=== PATIENT | female | born 1950 | race Caucasian/White ===

== ENCOUNTER 2017-03-22 07:53 | Inpatient (IN) ==
[2017-03-22 09:36] LABS: Basophils % 0.3 % (0.0-0.8); Eosinophils # 0.2 10*3/uL (0.0-0.87); Eosinophils % 2.3 % (0.00-10.9); Immature Granulocytes % 0.5 %; Immature Granulocytes Absolute 0.04 #; Lymphocytes # 1.1 10*3/uL (1.4-4.0); Lymphocytes % 15.1 % (21.3-54.2); Mean Corpuscular HGB Conc 30.7 GM/DL (32-36); Mean Corpuscular Hemoglobin 27 PG (27-34); Mean Platelet Volume 12.5 FL (9.6-12.0); Monocytes # 0.6 10*3/uL (0.11-0.8); Monocytes % 7.7 % (1.7-12.7); Neutrophils # 5.6 10*3/uL (1.4-7.4); Neutrophils % 74.1 % (38.7-73.9); Platelet Count 345 T/CUMM (130-400); Red Blood Count 1.72 MC/CUMM (3.8-5.5); Red Cell Distribution Width 15.4 % (9.3-17.3); White Blood Count 7.5 T/CUMM (4-12)
[2017-03-22 09:39] LABS: Hemoglobin 4.7 GM/DL (12.0-16.0)
[2017-03-22 09:40] LABS: Hematocrit 15.3 VOL% (35.7-47.0)
[2017-03-22] MEDS ORDERED: SODIUM CHLORIDE 0.9% 1,000 ML IV PRN (09:40)
[2017-03-22 09:51] LABS: Alanine Aminotransferase 58 U/L (13-56); Albumin 3.5 G/DL (3.4-5.0); Alkaline Phosphatase 250 U/L (45-117); Aspartate Amino Transferase 43 U/L (0-37); Bilirubin,Total < 0.39 MG/DL (0.2-1.0); Blood Urea Nitrogen 33 MG/DL (7-18); Calcium 8.5 MG/DL (8.5-10.1); Glucose 101 MG/DL (74-106); Magnesium 2.8 MG/DL (1.8-2.4); Osmolality,Calculated 281.7 MOS/KG (273-304); Potassium 4.9 MMOL/L (3.5-5.1); Sodium 138 MMOL/L (136-145); Total Protein 6.8 G/DL (6.4-8.3)
[2017-03-22 12:47] LABS: Hematocrit 27.9 VOL% (35.7-47.0); Hemoglobin 8.6 GM/DL (12.0-16.0)
[2017-03-22] MEDS ORDERED: FUROSEMIDE 40 MG/4 ML VIAL IV ONE (14:34)
[2017-03-22] MEDS ORDERED: FUROSEMIDE 40 MG/4 ML VIAL ONE (14:35)
[2017-03-22] MEDS: PANTOPRAZOLE 40 MG VIAL IV SCH (14:48)
[2017-03-22 15:34] LABS: Hematocrit 30.1 VOL% (35.7-47.0); Hemoglobin 9.2 GM/DL (12.0-16.0)
[2017-03-22 19:27] LABS: Hematocrit 29.1 VOL% (35.7-47.0)
[2017-03-22] MEDS ORDERED: traMADol 50 MG TABLET PO PRN (19:48)
[2017-03-22] MEDS ORDERED: ATORVASTATIN 10 MG TABLET PO SCH (21:00)
[2017-03-23 06:00] LABS: Hematocrit 27.1 VOL% (35.7-47.0); Hemoglobin 8.5 GM/DL (12.0-16.0)
[2017-03-23] MEDS ORDERED: ESTRADIOL 2 MG TABLET PO SCH (09:00)
[2017-03-23] MEDS ORDERED: IRBESARTAN 150 MG TABLET PO SCH (09:00)
[2017-03-23] MEDS ORDERED: TRIAMTERENE/HCTZ 37.5-25 MG TABLET PO SCH (09:00)
[2017-03-23] MEDS: PANTOPRAZOLE 40 MG VIAL IV SCH (11:02)
[2017-03-23 11:53] LABS: Hematocrit 28.8 VOL% (35.7-47.0); Hemoglobin 8.9 GM/DL (12.0-16.0)
[2017-03-23 12:50] VITALS: BP 154/80
== END 2017-03-23 14:00 | disposition home or self-care (01) | DRG 811 ==
LOC: N.ED 07:53 → N.EDINP 10:15 → SUATTDRO 10:15 → N.4E 12:00
PROVIDERS: ADMIT Internal Medicine; ATTEND Hospitalist

== ENCOUNTER 2022-04-19 16:10 | Observation (INO) ==
[2022-04-19] MEDS ORDERED: ASPIRIN 325 MG TABLET PO STA (16:54)
[2022-04-19 17:00] LABS: Basophils # 0.1 10*3/uL (0.0-0.2); Basophils % 0.9 % (0.0-0.8); Eosinophils # 0.2 10*3/uL (0.0-0.87); Hemoglobin 11.7 GM/DL (12.0-16.0); Immature Granulocytes % 0.4 %; Immature Granulocytes Absolute 0.03 #; Lymphocytes # 1.6 10*3/uL (1.4-4.0); Mean Corpuscular Volume 97.3 FL (87-102); Mean Platelet Volume 12.3 FL (9.6-12.0); Monocytes # 0.6 10*3/uL (0.11-0.8); Monocytes % 8.2 % (1.7-12.7); Neutrophils % 67.5 % (38.7-73.9); Platelet Count 150 T/CUMM (130-400); Red Blood Count 4.01 MC/CUMM (3.8-5.5); White Blood Count 7.5 T/CUMM (4-12)
[2022-04-19 17:20] LABS: Calcium 8.5 MG/DL (8.5-10.1); Osmolality,Calculated 297.4 MOS/KG (273-304); Potassium 3.8 MMOL/L (3.5-5.1)
[2022-04-19] MEDS ORDERED: FUROSEMIDE 40 MG/4 ML VIAL IV STA (18:00)
[2022-04-19] MEDS ORDERED: SIMETHICONE CHEW 125 MG TABLET PO PRN (19:27)
[2022-04-19] MEDS ORDERED: ALBUTEROL 2.5 MG/3 ML NEB RESP TX PRN (19:27)
[2022-04-19] MEDS ORDERED: ONDANSETRON 4 MG/2 ML VIAL IV PRN (19:27)
[2022-04-19] MEDS ORDERED: hydrALAZINE 20 MG/1 ML VIAL IV PRN (19:27)
[2022-04-19] MEDS ORDERED: MORPHINE 2 MG/1 ML SYRINGE IV PRN (19:27)
[2022-04-19] MEDS ORDERED: ACETAMINOPHEN 325 MG TABLET PO PRN (19:27)
[2022-04-19] MEDS ORDERED: FUROSEMIDE 40 MG TABLET PO PRN (19:32)
[2022-04-19] MEDS ORDERED: tiZANidine 4 MG TABLET PO PRN (19:32)
[2022-04-19] MEDS ORDERED: GABAPENTIN 100 MG CAPSULE PO PRN (19:32)
[2022-04-19] MEDS ORDERED: ENOXAPARIN 40 MG/0.4 ML SYRINGE SUBCUT SCH (21:00)
[2022-04-19] MEDS: DOCUSATE SODIUM 100 MG CAPSULE PO SCH (21:08)
[2022-04-19] MEDS: carvediloL 6.25 MG TABLET PO SCH (21:08)
[2022-04-20 05:02] LABS: Basophils # 0.1 10*3/uL (0.0-0.2); Basophils % 1.1 % (0.0-0.8); Eosinophils # 0.2 10*3/uL (0.0-0.87); Eosinophils % 2.5 % (0.00-10.9); Hematocrit 39.1 VOL% (35.7-47.0); Immature Granulocytes % 0.5 %; Immature Granulocytes Absolute 0.04 #; Lymphocytes # 2.3 10*3/uL (1.4-4.0); Lymphocytes % 26.4 % (21.3-54.2); Mean Corpuscular HGB Conc 30.7 GM/DL (32-36); Mean Corpuscular Volume 94.7 FL (87-102); Mean Platelet Volume 13.1 FL (9.6-12.0); Monocytes # 0.7 10*3/uL (0.11-0.8); Monocytes % 8.2 % (1.7-12.7); Neutrophils % 61.3 % (38.7-73.9); Platelet Count 152 T/CUMM (130-400); Red Blood Count 4.13 MC/CUMM (3.8-5.5); Red Cell Distribution Width 13.9 % (9.3-17.3); White Blood Count 8.6 T/CUMM (4-12)
[2022-04-20 05:03] LABS: INR 0.9; PT Patient Result 10.2 SECS (10.1-12.1)
[2022-04-20 05:26] LABS: Calcium 8.5 MG/DL (8.5-10.1); Potassium 4.1 MMOL/L (3.5-5.1); Risk Ratio 2.85; Thyroid Stimulating Hormone 2.75 uIU/ml (0.358-3.74); VLDL Cholesterol 50.4 MG/DL
[2022-04-20] MEDS ORDERED: PANTOPRAZOLE 40 MG TABLET PO SCH (09:00)
[2022-04-20] MEDS ORDERED: amLODIPine 2.5 MG TABLET PO SCH (09:00)
[2022-04-20] MEDS ORDERED: ATORVASTATIN 40 MG TABLET PO SCH (09:00)
[2022-04-20] MEDS ORDERED: ASPIRIN EC 325 MG TABLET PO SCH (09:00)
[2022-04-20] MEDS ORDERED: FUROSEMIDE 40 MG TABLET PO SCH (09:00)
[2022-04-20] MEDS ORDERED: hydroCHLOROthiazide 25 MG TABLET PO SCH (09:00)
[2022-04-20] MEDS ORDERED: buPROPion XL 150 MG TABLET PO SCH (09:00)
[2022-04-20] MEDS: DOCUSATE SODIUM 100 MG CAPSULE PO SCH (11:34)
[2022-04-20] MEDS: carvediloL 6.25 MG TABLET PO SCH (11:35)
[2022-04-20 16:47] VITALS: BP 122/92
[2022-04-21] MEDS ORDERED: ASPIRIN EC 81 MG TABLET PO SCH (09:00)
== END 2022-04-20 16:55 | disposition home or self-care (01) ==
LOC: N.ED 16:10 → N.EDINP 16:10 → SUATTDRO 19:27 → N.TELEN 21:41
PROVIDERS: ADMIT Internal Medicine; ATTEND Internal Medicine

== ENCOUNTER 2022-04-24 22:38 | Inpatient (IN) ==
[2022-04-24 23:05] LABS: Basophils # 0.1 10*3/uL (0.0-0.2); Eosinophils # 0.3 10*3/uL (0.0-0.87); Eosinophils % 2.9 % (0.00-10.9); Hematocrit 36.7 VOL% (35.7-47.0); Hemoglobin 11.3 GM/DL (12.0-16.0); Immature Granulocytes % 0.6 %; Immature Granulocytes Absolute 0.05 #; Lymphocytes # 1.9 10*3/uL (1.4-4.0); Lymphocytes % 22.2 % (21.3-54.2); Mean Corpuscular HGB Conc 30.8 GM/DL (32-36); Mean Corpuscular Volume 95.1 FL (87-102); Mean Platelet Volume 12.6 FL (9.6-12.0); Monocytes # 0.7 10*3/uL (0.11-0.8); Monocytes % 7.7 % (1.7-12.7); Neutrophils % 65.6 % (38.7-73.9); Platelet Count 186 T/CUMM (130-400); Red Blood Count 3.86 MC/CUMM (3.8-5.5); Red Cell Distribution Width 13.8 % (9.3-17.3); White Blood Count 8.7 T/CUMM (4-12)
[2022-04-24 23:23] LABS: Alanine Aminotransferase 36 U/L (13-56); Albumin 3.8 G/DL (3.4-5.0); Alkaline Phosphatase 125 U/L (45-117); Aspartate Amino Transferase 26 U/L (0-37); Bilirubin,Total < 0.39 MG/DL (0.20-1.00); Blood Urea Nitrogen 68 MG/DL (7-18); Calcium 9.2 MG/DL (8.5-10.1); Carbon Dioxide 31 MMOL/L (21-32); Chloride 101 MMOL/L (98-107); Glucose 118 MG/DL (74-106); Sodium 136 MMOL/L (136-145); Total Protein 7.4 G/DL (6.4-8.2)
[2022-04-24] MEDS ORDERED: ASPIRIN 325 MG TABLET PO STA (23:34)
[2022-04-24] MEDS ORDERED: PANTOPRAZOLE 40 MG VIAL IV STA (23:36)
[2022-04-25] MEDS ORDERED: ONDANSETRON 4 MG/2 ML VIAL IV STA (00:22)
[2022-04-25] MEDS ORDERED: MORPHINE 2 MG/1 ML SYRINGE IV STA (00:22)
[2022-04-25] MEDS ORDERED: FUROSEMIDE 100 MG/10 ML VIAL IV STA (00:23)
[2022-04-25] MEDS ORDERED: FUROSEMIDE 40 MG/4 ML VIAL ONE (00:32)
[2022-04-25] MEDS ORDERED: SODIUM CHLORIDE 0.9% 500 ML IV STA (00:42)
[2022-04-25] MEDS ORDERED: CALCIUM GLUCONATE RIDER 1,000 MG/50 ML PREMIX IV ONE (01:45)
[2022-04-25] MEDS ORDERED: ALUM/MAG/SIMETH/LIDO VISC 1:1 30 ML BOTTLE PO STA (01:58)
[2022-04-25] MEDS ORDERED: ACETAMINOPHEN 325 MG TABLET PO PRN (02:44)
[2022-04-25] MEDS ORDERED: ONDANSETRON 4 MG/2 ML VIAL IV PRN (02:44)
[2022-04-25] MEDS: predniSONE 20 MG TABLET PO SCH (04:30)
[2022-04-25 04:41] LABS: Basophils # 0.1 10*3/uL (0.0-0.2); Basophils % 0.9 % (0.0-0.8); Eosinophils # 0.2 10*3/uL (0.0-0.87); Eosinophils % 2.2 % (0.00-10.9); Hemoglobin 10.8 GM/DL (12.0-16.0); Immature Granulocytes % 0.5 %; Immature Granulocytes Absolute 0.04 #; Lymphocytes # 1.5 10*3/uL (1.4-4.0); Lymphocytes % 19.1 % (21.3-54.2); Mean Corpuscular Volume 96.8 FL (87-102); Mean Platelet Volume 12.3 FL (9.6-12.0); Monocytes # 0.6 10*3/uL (0.11-0.8); Monocytes % 7.3 % (1.7-12.7); Platelet Count 169 T/CUMM (130-400); Red Blood Count 3.72 MC/CUMM (3.8-5.5); Red Cell Distribution Width 13.7 % (9.3-17.3); White Blood Count 7.6 T/CUMM (4-12)
[2022-04-25 05:14] LABS: C-Reactive Protein HS Cardiac 0.43 MG/DL (0-0.3); Calcium 9.1 MG/DL (8.5-10.1); Osmolality,Calculated 299.4 MOS/KG (273-304); Potassium 3.8 MMOL/L (3.5-5.1)
[2022-04-25 05:42] LABS: Sedimentation Rate-Westergren 65 MM/HR (0-30)
[2022-04-25] MEDS: ALBUTEROL/IPRATROPIUM 3 ML NEB RESP TX SCH ×3 (07:30→19:55)
[2022-04-25] MEDS: DOCUSATE SODIUM 100 MG CAPSULE PO SCH ×2 (08:28→22:01)
[2022-04-25] MEDS: HEPARIN 5,000 UNIT/1 ML VIAL SUBCUT SCH ×2 (08:28→22:02)
[2022-04-25] MEDS ORDERED: INFLUENZA VIRUS VACCINE 0.5 ML SYRINGE IM ONE (09:00)
[2022-04-25] MEDS: ALUMINUM/MAGNES/SIMETH MAX STR 30 ML UDCUP PO PRN (11:15)
[2022-04-25] MEDS: amLODIPine 2.5 MG TABLET PO SCH (16:39)
[2022-04-25] MEDS: cefTRIAXone 1,000 MG in SODIUM CHLORIDE 0.9% 100 ML IV SCH (16:39)
[2022-04-25] MEDS: ATORVASTATIN 40 MG TABLET PO SCH (16:40)
[2022-04-25] MEDS: ASPIRIN EC 81 MG TABLET PO SCH (16:40)
[2022-04-25] MEDS: carvediloL 6.25 MG TABLET PO SCH ×2 (16:40→22:01)
[2022-04-25] MEDS: tiZANidine 4 MG TABLET PO PRN (22:02)
[2022-04-25] MEDS: GABAPENTIN 100 MG CAPSULE PO PRN (22:02)
[2022-04-26] MEDS: ALBUTEROL/IPRATROPIUM 3 ML NEB RESP TX SCH ×4 (00:31→21:44)
[2022-04-26] MEDS: ALUMINUM/MAGNES/SIMETH MAX STR 30 ML UDCUP PO PRN (03:33)
[2022-04-26 06:06] LABS: Basophils % 0.5 % (0.0-0.8); Eosinophils # 0.1 10*3/uL (0.0-0.87); Eosinophils % 1.6 % (0.00-10.9); Hematocrit 32.4 VOL% (35.7-47.0); Hemoglobin 10.1 GM/DL (12.0-16.0); Immature Granulocytes % 0.6 %; Immature Granulocytes Absolute 0.04 #; Lymphocytes # 1.4 10*3/uL (1.4-4.0); Lymphocytes % 22.6 % (21.3-54.2); Mean Corpuscular HGB Conc 31.2 GM/DL (32-36); Mean Corpuscular Volume 96.7 FL (87-102); Monocytes # 0.5 10*3/uL (0.11-0.8); Monocytes % 7.6 % (1.7-12.7); Neutrophils % 67.1 % (38.7-73.9); Platelet Count 174 T/CUMM (130-400); Red Blood Count 3.35 MC/CUMM (3.8-5.5); Red Cell Distribution Width 13.7 % (9.3-17.3); White Blood Count 6.2 T/CUMM (4-12)
[2022-04-26] MEDS ORDERED: ALUM/MAG/SIMETH/LIDO VISC 1:1 30 ML BOTTLE PO ONE (06:15)
[2022-04-26 06:23] LABS: Calcium 8.5 MG/DL (8.5-10.1); Osmolality,Calculated 296.4 MOS/KG (273-304); Potassium 3.6 MMOL/L (3.5-5.1)
[2022-04-26] MEDS: ATORVASTATIN 40 MG TABLET PO SCH (09:35)
[2022-04-26] MEDS: predniSONE 20 MG TABLET PO SCH (09:35)
[2022-04-26] MEDS: ASPIRIN EC 81 MG TABLET PO SCH (09:35)
[2022-04-26] MEDS: DOCUSATE SODIUM 100 MG CAPSULE PO SCH ×2 (09:35→20:45)
[2022-04-26] MEDS: FUROSEMIDE 40 MG/4 ML VIAL IV SCH ×2 (09:37→18:03)
[2022-04-26] MEDS: HEPARIN 5,000 UNIT/1 ML VIAL SUBCUT SCH ×2 (09:45→20:47)
[2022-04-26] MEDS: carvediloL 6.25 MG TABLET PO SCH ×2 (12:22→20:45)
[2022-04-26] MEDS: AZITHROMYCIN INJ 500 MG in SODIUM CHLORIDE 0.9% 250 ML IV SCH ×2 (12:22→20:54)
[2022-04-26] MEDS: amLODIPine 2.5 MG TABLET PO SCH (12:22)
[2022-04-26] MEDS: PANTOPRAZOLE 40 MG TABLET PO SCH (12:22)
[2022-04-26] MEDS: cefTRIAXone 1,000 MG in SODIUM CHLORIDE 0.9% 100 ML IV SCH (18:31)
[2022-04-26] MEDS: tiZANidine 4 MG TABLET PO PRN (23:15)
[2022-04-26] MEDS: GABAPENTIN 100 MG CAPSULE PO PRN (23:15)
[2022-04-27] MEDS: ALBUTEROL/IPRATROPIUM 3 ML NEB RESP TX SCH ×4 (01:28→20:24)
[2022-04-27 05:50] LABS: Basophils # 0.1 10*3/uL (0.0-0.2); Basophils % 0.7 % (0.0-0.8); Eosinophils # 0.1 10*3/uL (0.0-0.87); Eosinophils % 0.9 % (0.00-10.9); Hematocrit 35.6 VOL% (35.7-47.0); Hemoglobin 10.9 GM/DL (12.0-16.0); Immature Granulocytes % 0.5 %; Immature Granulocytes Absolute 0.04 #; Lymphocytes % 26.4 % (21.3-54.2); Mean Corpuscular HGB Conc 30.6 GM/DL (32-36); Mean Corpuscular Volume 97.3 FL (87-102); Mean Platelet Volume 12.8 FL (9.6-12.0); Monocytes # 0.4 10*3/uL (0.11-0.8); Monocytes % 5.8 % (1.7-12.7); Neutrophils % 65.7 % (38.7-73.9); Platelet Count 204 T/CUMM (130-400); Red Blood Count 3.66 MC/CUMM (3.8-5.5); Red Cell Distribution Width 13.8 % (9.3-17.3); White Blood Count 7.6 T/CUMM (4-12)
[2022-04-27 06:12] LABS: Alanine Aminotransferase 32 U/L (13-56); Albumin 3.5 G/DL (3.4-5.0); Alkaline Phosphatase 111 U/L (45-117); Aspartate Amino Transferase 23 U/L (0-37); Bilirubin,Total < 0.39 MG/DL (0.20-1.00); Blood Urea Nitrogen 76 MG/DL (7-18); Calcium 8.5 MG/DL (8.5-10.1); Carbon Dioxide 29 MMOL/L (21-32); Chloride 102 MMOL/L (98-107); Glucose 116 MG/DL (74-106); Osmolality,Calculated 296.8 MOS/KG (273-304); Potassium 3.6 MMOL/L (3.5-5.1); Sodium 137 MMOL/L (136-145); Total Protein 6.9 G/DL (6.4-8.2)
[2022-04-27] MEDS ORDERED: NITROGLYCERIN SL 0.4 MG TABLET SL ONE ×2 (08:07→08:10)
[2022-04-27] MEDS: ASPIRIN EC 81 MG TABLET PO SCH (08:12)
[2022-04-27] MEDS: predniSONE 20 MG TABLET PO SCH (08:12)
[2022-04-27] MEDS: ATORVASTATIN 40 MG TABLET PO SCH (08:12)
[2022-04-27] MEDS: DOCUSATE SODIUM 100 MG CAPSULE PO SCH ×2 (08:12→21:17)
[2022-04-27] MEDS: PANTOPRAZOLE 40 MG TABLET PO SCH (08:13)
[2022-04-27] MEDS: HEPARIN 5,000 UNIT/1 ML VIAL SUBCUT SCH ×2 (08:13→21:18)
[2022-04-27] MEDS: carvediloL 6.25 MG TABLET PO SCH ×2 (08:17→21:17)
[2022-04-27] MEDS: ALUMINUM/MAGNES/SIMETH MAX STR 30 ML UDCUP PO PRN ×2 (08:17→18:22)
[2022-04-27] MEDS: GABAPENTIN 100 MG CAPSULE PO PRN ×2 (08:34→21:32)
[2022-04-27] MEDS ORDERED: MORPHINE 2 MG/1 ML SYRINGE IV ONE (09:55)
[2022-04-27] MEDS ORDERED: FUROSEMIDE 40 MG/4 ML VIAL IV ONE (10:14)
[2022-04-27] MEDS ORDERED: HYOSCYAMINE 0.125 MG TABLET PO PRN (10:42)
[2022-04-27] MEDS: methylPREDNISolone SOD SUC 125 MG/2 ML VIAL IV SCH ×2 (13:30→21:18)
[2022-04-27] MEDS: cefTRIAXone 1,000 MG in SODIUM CHLORIDE 0.9% 100 ML IV SCH (17:19)
[2022-04-27] MEDS: AZITHROMYCIN INJ 500 MG in SODIUM CHLORIDE 0.9% 250 ML IV SCH (17:56)
[2022-04-27] MEDS: ASCORBIC ACID 500 MG TABLET PO SCH (21:17)
[2022-04-27] MEDS: PANTOPRAZOLE 40 MG VIAL IV SCH (21:18)
[2022-04-27] MEDS: tiZANidine 4 MG TABLET PO PRN (21:32)
[2022-04-28] MEDS: ALBUTEROL/IPRATROPIUM 3 ML NEB RESP TX SCH ×3 (00:56→13:00)
[2022-04-28] MEDS: methylPREDNISolone SOD SUC 125 MG/2 ML VIAL IV SCH (04:21)
[2022-04-28 05:18] LABS: Basophils % 0.1 % (0.0-0.8); Hematocrit 31.7 VOL% (35.7-47.0); Hemoglobin 9.7 GM/DL (12.0-16.0); Immature Granulocytes % 0.8 %; Immature Granulocytes Absolute 0.06 #; Lymphocytes # 0.6 10*3/uL (1.4-4.0); Lymphocytes % 8.4 % (21.3-54.2); Mean Corpuscular HGB Conc 30.6 GM/DL (32-36); Mean Corpuscular Volume 95.5 FL (87-102); Mean Platelet Volume 12.9 FL (9.6-12.0); Monocytes # 0.1 10*3/uL (0.11-0.8); Monocytes % 1.1 % (1.7-12.7); Neutrophils % 89.6 % (38.7-73.9); Platelet Count 183 T/CUMM (130-400); Red Blood Count 3.32 MC/CUMM (3.8-5.5); Red Cell Distribution Width 13.5 % (9.3-17.3); White Blood Count 7.5 T/CUMM (4-12)
[2022-04-28 05:51] LABS: Osmolality,Calculated 307.5 MOS/KG (273-304)
[2022-04-28] MEDS ORDERED: buPROPion XL 150 MG TABLET PO SCH (09:00)
[2022-04-28] MEDS ORDERED: FUROSEMIDE 40 MG/4 ML VIAL IV SCH (09:00)
[2022-04-28] MEDS: ASCORBIC ACID 500 MG TABLET PO SCH (10:30)
[2022-04-28] MEDS ORDERED: SODIUM CHLORIDE 0.9% 1,000 ML IV SCH (10:30)
[2022-04-28] MEDS: DOCUSATE SODIUM 100 MG CAPSULE PO SCH (10:31)
[2022-04-28] MEDS: ASPIRIN EC 81 MG TABLET PO SCH (10:31)
[2022-04-28] MEDS: ATORVASTATIN 40 MG TABLET PO SCH (10:31)
[2022-04-28] MEDS: GABAPENTIN 100 MG CAPSULE PO PRN (10:32)
[2022-04-28] MEDS: HEPARIN 5,000 UNIT/1 ML VIAL SUBCUT SCH (10:33)
[2022-04-28] MEDS: PANTOPRAZOLE 40 MG VIAL IV SCH (10:35)
[2022-04-28] MEDS: carvediloL 6.25 MG TABLET PO SCH (10:49)
[2022-04-28] MEDS ORDERED: predniSONE 20 MG TABLET PO ONE (13:02)
[2022-04-28] MEDS ORDERED: AZITHROMYCIN 250 MG TABLET PO ONE (13:02)
[2022-04-28] MEDS ORDERED: cefTRIAXone 1,000 MG VIAL IM ONE (13:03)
[2022-04-28] MEDS ORDERED: LIDOCAINE 1% 20 ML VIAL IM ONE ×2 (16:30)
[2022-04-28 16:37] VITALS: BP 145/83
== END 2022-04-28 17:15 | disposition home or self-care (01) | DRG 194 ==
LOC: N.ED 22:38 → N.TELEN 22:38 → SUATTDRO 04-25 02:38 → N.TELEN 04-25 04:56 → SUATTDRO 04-27 14:59
PROVIDERS: ADMIT Internal Medicine; ATTEND Internal Medicine

== ENCOUNTER 2022-05-01 16:01 | Observation (INO) ==
[2022-05-01] MEDS ORDERED: MORPHINE 2 MG/1 ML SYRINGE IV STA (17:13)
[2022-05-01 17:20] LABS: Basophils # 0.1 10*3/uL (0.0-0.2); Basophils % 0.6 % (0.0-0.8); Eosinophils # 0.1 10*3/uL (0.0-0.87); Hemoglobin 11.5 GM/DL (12.0-16.0); Immature Granulocytes % 2.6 %; Immature Granulocytes Absolute 0.21 #; Lymphocytes # 1.4 10*3/uL (1.4-4.0); Lymphocytes % 17.2 % (21.3-54.2); Mean Corpuscular HGB Conc 31.1 GM/DL (32-36); Mean Corpuscular Volume 94.9 FL (87-102); Mean Platelet Volume 12.7 FL (9.6-12.0); Monocytes # 0.4 10*3/uL (0.11-0.8); Monocytes % 4.6 % (1.7-12.7); Platelet Count 275 T/CUMM (130-400); Red Cell Distribution Width 13.9 % (9.3-17.3)
[2022-05-01] MEDS ORDERED: ONDANSETRON 4 MG/2 ML VIAL ONE (17:25)
[2022-05-01 17:45] LABS: Calcium 8.3 MG/DL (8.5-10.1); Potassium 4.4 MMOL/L (3.5-5.1)
[2022-05-01] MEDS ORDERED: MORPHINE 2 MG/1 ML SYRINGE IV PRN (18:44)
[2022-05-01] MEDS ORDERED: ACETAMINOPHEN 325 MG TABLET PO PRN (18:44)
[2022-05-01] MEDS ORDERED: ONDANSETRON 4 MG/2 ML VIAL IV PRN (18:44)
[2022-05-01] MEDS ORDERED: ASPIRIN CHEW 81 MG TABLET PO STA (19:07)
[2022-05-01] MEDS: tiZANidine 4 MG TABLET PO PRN (21:39)
[2022-05-02 06:13] LABS: Basophils % 0.5 % (0.0-0.8); Eosinophils # 0.2 10*3/uL (0.0-0.87); Eosinophils % 2.6 % (0.00-10.9); Hematocrit 33.3 VOL% (35.7-47.0); Hemoglobin 10.4 GM/DL (12.0-16.0); Immature Granulocytes % 2.5 %; Immature Granulocytes Absolute 0.21 #; Lymphocytes # 2.1 10*3/uL (1.4-4.0); Lymphocytes % 24.3 % (21.3-54.2); Mean Corpuscular HGB Conc 31.2 GM/DL (32-36); Mean Corpuscular Volume 94.6 FL (87-102); Mean Platelet Volume 12.5 FL (9.6-12.0); Monocytes # 0.6 10*3/uL (0.11-0.8); Monocytes % 7.3 % (1.7-12.7); Neutrophils % 62.8 % (38.7-73.9); Platelet Count 252 T/CUMM (130-400); Red Blood Count 3.52 MC/CUMM (3.8-5.5); Red Cell Distribution Width 14.1 % (9.3-17.3); White Blood Count 8.5 T/CUMM (4-12)
[2022-05-02 06:43] LABS: Alanine Aminotransferase 212 U/L (13-56); Albumin 3.2 G/DL (3.4-5.0); Alkaline Phosphatase 106 U/L (45-117); Aspartate Amino Transferase 94 U/L (0-37); Bilirubin,Total < 0.39 MG/DL (0.20-1.00); Blood Urea Nitrogen 68 MG/DL (7-18); Calcium 7.9 MG/DL (8.5-10.1); Carbon Dioxide 28 MMOL/L (21-32); Chloride 101 MMOL/L (98-107); Cholesterol 158 MG/DL (50-200); Glucose 99 MG/DL (74-106); HDL Cholesterol 73 MG/DL (40-60); Osmolality,Calculated 298.4 MOS/KG (273-304); Potassium 3.9 MMOL/L (3.5-5.1); Risk Ratio 2.16; Sodium 140 MMOL/L (136-145); Total Protein 5.8 G/DL (6.4-8.2); Triglycerides 290 MG/DL (2-150)
[2022-05-02] MEDS ORDERED: GABAPENTIN 100 MG CAPSULE PO PRN (07:58)
[2022-05-02] MEDS ORDERED: NITROGLYCERIN 2% OINT 1 INCH/GM PACK TOP ONE (07:58)
[2022-05-02] MEDS ORDERED: FUROSEMIDE 40 MG TABLET PO PRN (07:58)
[2022-05-02] MEDS ORDERED: ENOXAPARIN 80 MG/0.8 ML SYRINGE SUBCUT ONE (07:58)
[2022-05-02] MEDS ORDERED: FUROSEMIDE 40 MG/4 ML VIAL IV ONE (08:13)
[2022-05-02] MEDS: amLODIPine 2.5 MG TABLET PO SCH (08:32)
[2022-05-02] MEDS: ATORVASTATIN 40 MG TABLET PO SCH (08:32)
[2022-05-02] MEDS: ASCORBIC ACID 500 MG TABLET PO SCH ×2 (08:32→21:18)
[2022-05-02] MEDS: PANTOPRAZOLE 40 MG TABLET PO SCH ×2 (08:33→09:42)
[2022-05-02] MEDS: buPROPion XL 150 MG TABLET PO SCH (08:33)
[2022-05-02] MEDS: carvediloL 6.25 MG TABLET PO SCH ×2 (08:33→21:19)
[2022-05-02] MEDS: ASPIRIN EC 81 MG TABLET PO SCH (08:33)
[2022-05-02] MEDS: ISOSORBIDE MONONITRATE 30 MG TABLET PO SCH (13:39)
[2022-05-02] MEDS: BUDESONIDE/FORMOTEROL 80-4.5 INHALER 6.9 GM INH SCH (21:19)
[2022-05-02] MEDS: tiZANidine 4 MG TABLET PO PRN (22:49)
[2022-05-03 08:19] VITALS: BP 117/72
[2022-05-03] MEDS: BUDESONIDE/FORMOTEROL 80-4.5 INHALER 6.9 GM INH SCH (09:16)
[2022-05-03] MEDS: ISOSORBIDE MONONITRATE 30 MG TABLET PO SCH (09:17)
[2022-05-03] MEDS: ATORVASTATIN 40 MG TABLET PO SCH (09:17)
[2022-05-03] MEDS: ASCORBIC ACID 500 MG TABLET PO SCH (09:17)
[2022-05-03] MEDS: amLODIPine 2.5 MG TABLET PO SCH (09:17)
[2022-05-03] MEDS: carvediloL 6.25 MG TABLET PO SCH (09:17)
[2022-05-03] MEDS: PANTOPRAZOLE 40 MG TABLET PO SCH ×2 (09:17→10:05)
[2022-05-03] MEDS: ASPIRIN EC 81 MG TABLET PO SCH (09:17)
[2022-05-03] MEDS: buPROPion XL 150 MG TABLET PO SCH (09:17)
[2022-05-03] MEDS ORDERED: PNEUMOCOCCAL VACCINE (20 VALENT) 0.5 ML SYRINGE IM ONE (10:17)
== END 2022-05-03 10:59 | disposition home or self-care (01) ==
LOC: N.ED 16:01 → N.EDINP 16:01 → SUATTDRO 18:44 → N.TELES 20:10
PROVIDERS: ADMIT Family Medicine; ATTEND Internal Medicine

== ENCOUNTER 2022-05-07 18:20 | Inpatient (IN) ==
[2022-05-07 19:32] LABS: Basophils # 0.1 10*3/uL (0.0-0.2); Basophils % 0.6 % (0.0-0.8); Eosinophils # 0.1 10*3/uL (0.0-0.87); Eosinophils % 0.8 % (0.00-10.9); Hematocrit 30.2 VOL% (35.7-47.0); Hemoglobin 9.3 GM/DL (12.0-16.0); Immature Granulocytes % 1.8 %; Immature Granulocytes Absolute 0.18 #; Lymphocytes # 2.3 10*3/uL (1.4-4.0); Lymphocytes % 23.5 % (21.3-54.2); Mean Corpuscular HGB Conc 30.8 GM/DL (32-36); Mean Corpuscular Volume 96.2 FL (87-102); Mean Platelet Volume 12.8 FL (9.6-12.0); Monocytes # 0.8 10*3/uL (0.11-0.8); Monocytes % 8.2 % (1.7-12.7); NRBC # 0.04 10*3/uL; Neutrophils % 65.1 % (38.7-73.9); Platelet Count 197 T/CUMM (130-400); Red Blood Count 3.14 MC/CUMM (3.8-5.5); Red Cell Distribution Width 14.6 % (9.3-17.3); White Blood Count 9.9 T/CUMM (4-12)
[2022-05-07 19:38] LABS: INR 0.9; PT Patient Result 10.4 SECS (10.1-12.1)
[2022-05-07] MEDS ORDERED: ASPIRIN EC 325 MG TABLET PO STA (19:47)
[2022-05-07 19:52] LABS: Albumin 3.4 G/DL (3.4-5.0); Bilirubin,Total 0.4 MG/DL (0.20-1.00); Calcium 7.9 MG/DL (8.5-10.1); Osmolality,Calculated 295.1 MOS/KG (273-304); Potassium 4.1 MMOL/L (3.5-5.1); Total Protein 6.5 G/DL (6.4-8.2)
[2022-05-07] MEDS ORDERED: FUROSEMIDE 40 MG/4 ML VIAL IV STA (20:13)
[2022-05-07 20:14] LABS: Arterial Base Excess iSTAT 2 MMOL/L (-2.5-2.5); Arterial Bicarbonate iSTAT 24.7 MMOL/L (20-26); Arterial O2 Saturation iSTAT 93 % (95-100); Arterial PCO2 iSTAT 32 MM HG (35-48); Arterial PO2 iSTAT 60 MM HG (80-95); Arterial Total CO2 iSTAT 26 MMO/L (23-27); Arterial pH iSTAT 7.502 (7.35-7.45)
[2022-05-07] MEDS ORDERED: SODIUM CHLORIDE 0.9% 500 ML IV STA (20:23)
[2022-05-07] MEDS ORDERED: ONDANSETRON 4 MG/2 ML VIAL IV PRN (22:12)
[2022-05-07] MEDS ORDERED: ACETAMINOPHEN 325 MG TABLET PO PRN (22:12)
[2022-05-07] MEDS ORDERED: SODIUM CHLORIDE 0.9% 1,000 ML IV SCH (22:30)
[2022-05-07] MEDS ORDERED: GABAPENTIN 100 MG CAPSULE PO PRN (22:38)
[2022-05-07] MEDS ORDERED: FUROSEMIDE 40 MG TABLET PO PRN (22:38)
[2022-05-08] MEDS: tiZANidine 4 MG TABLET PO PRN (00:13)
[2022-05-08 01:00] LABS: Basophils # 0.1 10*3/uL (0.0-0.2); Basophils % 0.7 % (0.0-0.8); Eosinophils # 0.1 10*3/uL (0.0-0.87); Eosinophils % 1.1 % (0.00-10.9); Hematocrit 30.9 VOL% (35.7-47.0); Hemoglobin 9.6 GM/DL (12.0-16.0); Immature Granulocytes % 1.8 %; Lymphocytes # 1.7 10*3/uL (1.4-4.0); Lymphocytes % 14.7 % (21.3-54.2); Mean Corpuscular HGB Conc 31.1 GM/DL (32-36); Mean Corpuscular Volume 96.3 FL (87-102); Mean Platelet Volume 12.5 FL (9.6-12.0); Monocytes # 0.7 10*3/uL (0.11-0.8); Monocytes % 6.4 % (1.7-12.7); NRBC # 0.06 10*3/uL; Neutrophils % 75.3 % (38.7-73.9); Platelet Count 164 T/CUMM (130-400); Red Blood Count 3.21 MC/CUMM (3.8-5.5); Red Cell Distribution Width 14.6 % (9.3-17.3); White Blood Count 11.3 T/CUMM (4-12)
[2022-05-08 01:15] LABS: Calcium 7.9 MG/DL (8.5-10.1)
[2022-05-08] MEDS: ALBUTEROL 2.5 MG/3 ML NEB RESP TX SCH ×4 (02:25→18:34)
[2022-05-08 06:37] LABS: Alanine Aminotransferase 97 U/L (13-56); Albumin 2.8 G/DL (3.4-5.0); Alkaline Phosphatase 127 U/L (45-117); Aspartate Amino Transferase 48 U/L (0-37); Bilirubin,Direct < 0.100 MG/DL (0.0-0.20); Bilirubin,Indirect 0.3 MG/DL (0.0-1.0); Total Protein 5.4 G/DL (6.4-8.2)
[2022-05-08] MEDS ORDERED: SODIUM CHLORIDE 0.9% 500 ML IV ONE ×2 (07:22→16:17)
[2022-05-08] MEDS ORDERED: carvediloL 6.25 MG TABLET PO SCH (08:00)
[2022-05-08] MEDS: SODIUM CHLORIDE 0.9% 1,000 ML IV SCH ×2 (08:12→18:02)
[2022-05-08] MEDS: HEPARIN 5,000 UNIT/1 ML VIAL SUBCUT SCH ×2 (08:12→20:24)
[2022-05-08] MEDS: BUDESONIDE/FORMOTEROL 80-4.5 INHALER 6.9 GM INH SCH ×2 (08:12→20:25)
[2022-05-08] MEDS: DOCUSATE SODIUM 100 MG CAPSULE PO SCH ×2 (08:13→20:24)
[2022-05-08] MEDS: buPROPion XL 150 MG TABLET PO SCH (08:13)
[2022-05-08] MEDS: ASCORBIC ACID 500 MG TABLET PO SCH ×2 (08:13→20:24)
[2022-05-08] MEDS: ASPIRIN EC 81 MG TABLET PO SCH (08:13)
[2022-05-08] MEDS: PANTOPRAZOLE 40 MG TABLET PO SCH (08:13)
[2022-05-08] MEDS: ATORVASTATIN 40 MG TABLET PO SCH (08:13)
[2022-05-08] MEDS ORDERED: ISOSORBIDE MONONITRATE 30 MG TABLET PO SCH (09:00)
[2022-05-08] MEDS ORDERED: amLODIPine 2.5 MG TABLET PO SCH (09:00)
[2022-05-08] MEDS ORDERED: [UNRECOGNIZED DRUG - OTHER] PO SCH (09:00)
[2022-05-08] MEDS ORDERED: SODIUM CHLORIDE 0.9% 250 ML IV ONE (12:44)
[2022-05-08 15:17] LABS: Bacteria,Urine Occasional /HPF (Few); Hyaline Casts,Urine 4 /LPF (0-3); RBC,Urine 1 /HPF (0-4); Squamous Epithelial Cell,Urine Occasional /HPF (0-10)
[2022-05-08 15:22] LABS: Bilirubin,Urine Negative (Negative); Blood, Urine Negative (Negative); Glucose,Urine (UA) Negative (Negative); Ketones,Urine Trace mg/dL (Negative); Nitrite,Urine Negative (Negative); Protein,Urine 30 mg/dL (Negative); Urine Appearance Clear (Clear); Urine Color Yellow (Yellow); Urine Specific Gravity 1.015 (1.001-1.035); Urine Urobilinogen 0.2 eU/dL (<2.0); Urine pH 5.5 (4.5-8.0)
[2022-05-08 17:20] LABS: Arterial Base Excess iSTAT 0 MMOL/L (-2.5-2.5); Arterial Bicarbonate iSTAT 23.1 MMOL/L (20-26); Arterial O2 Saturation iSTAT 91 % (95-100); Arterial PCO2 iSTAT 33 MM HG (35-48); Arterial PO2 iSTAT 56 MM HG (80-95); Arterial Total CO2 iSTAT 24 MMO/L (23-27); Arterial pH iSTAT 7.455 (7.35-7.45)
[2022-05-08] MEDS: SIMETHICONE CHEW 125 MG TABLET PO PRN (22:02)
[2022-05-09] MEDS: ALBUTEROL 2.5 MG/3 ML NEB RESP TX SCH ×4 (00:23→18:52)
[2022-05-09] MEDS: tiZANidine 4 MG TABLET PO PRN ×2 (01:22→23:11)
[2022-05-09] MEDS ORDERED: SODIUM CHLORIDE 0.9% 500 ML IV ONE (03:30)
[2022-05-09] MEDS ORDERED: NOREPINEPHRINE DRIP 8 MG/250 ML PREMIX IV PRN (03:44)
[2022-05-09] MEDS ORDERED: NOREPINEPHRINE DRIP 8 MG/250 ML PREMIX IV ONE (03:50)
[2022-05-09] MEDS: SODIUM CHLORIDE 0.9% 1,000 ML IV SCH (05:32)
[2022-05-09 05:57] LABS: Basophils % 0.4 % (0.0-0.8); Eosinophils # 0.2 10*3/uL (0.0-0.87); Eosinophils % 1.5 % (0.00-10.9); Hematocrit 29.2 VOL% (35.7-47.0); Hemoglobin 9.1 GM/DL (12.0-16.0); Immature Granulocytes % 0.7 %; Immature Granulocytes Absolute 0.07 #; Lymphocytes # 1.6 10*3/uL (1.4-4.0); Lymphocytes % 16.5 % (21.3-54.2); Mean Corpuscular HGB Conc 31.2 GM/DL (32-36); Mean Platelet Volume 12.7 FL (9.6-12.0); Monocytes # 0.7 10*3/uL (0.11-0.8); Monocytes % 7.4 % (1.7-12.7); NRBC # 0.08 10*3/uL; Neutrophils % 73.5 % (38.7-73.9); Platelet Count 157 T/CUMM (130-400); Red Blood Count 3.01 MC/CUMM (3.8-5.5); Red Cell Distribution Width 15.1 % (9.3-17.3); White Blood Count 9.9 T/CUMM (4-12)
[2022-05-09 06:19] LABS: Albumin 2.9 G/DL (3.4-5.0); Bilirubin,Total 0.5 MG/DL (0.20-1.00); Calcium 7.5 MG/DL (8.5-10.1); Osmolality,Calculated 296.7 MOS/KG (273-304); Potassium 3.5 MMOL/L (3.5-5.1); Total Protein 5.9 G/DL (6.4-8.2)
[2022-05-09] MEDS ORDERED: FUROSEMIDE 40 MG/4 ML VIAL IV ONE (08:49)
[2022-05-09] MEDS: BUDESONIDE/FORMOTEROL 80-4.5 INHALER 6.9 GM INH SCH ×2 (09:44→21:03)
[2022-05-09] MEDS: buPROPion XL 150 MG TABLET PO SCH (09:45)
[2022-05-09] MEDS: DOCUSATE SODIUM 100 MG CAPSULE PO SCH ×2 (09:45→20:58)
[2022-05-09] MEDS: SIMETHICONE CHEW 125 MG TABLET PO PRN (09:45)
[2022-05-09] MEDS: PANTOPRAZOLE 40 MG TABLET PO SCH (09:45)
[2022-05-09] MEDS: ASPIRIN EC 81 MG TABLET PO SCH (09:45)
[2022-05-09] MEDS: ATORVASTATIN 40 MG TABLET PO SCH (09:45)
[2022-05-09] MEDS: ASCORBIC ACID 500 MG TABLET PO SCH ×2 (09:45→20:58)
[2022-05-09] MEDS: methylPREDNISolone SOD SUC 40 MG/1 ML VIAL IV SCH ×2 (09:46→16:57)
[2022-05-09] MEDS: HEPARIN 5,000 UNIT/1 ML VIAL SUBCUT SCH ×2 (09:52→20:58)
[2022-05-09] MEDS: ALPRAZolam 0.5 MG TABLET PO PRN (11:32)
[2022-05-09] MEDS: POLYETHYLENE GLYCOL POWDER 17 GM PACK PO SCH (11:33)
[2022-05-09] MEDS: SILDENAFIL 20 MG TABLET PO SCH ×2 (15:14→20:58)
[2022-05-10] MEDS: methylPREDNISolone SOD SUC 40 MG/1 ML VIAL IV SCH ×3 (00:12→17:33)
[2022-05-10] MEDS: ALBUTEROL 2.5 MG/3 ML NEB RESP TX SCH ×4 (00:17→21:10)
[2022-05-10 04:22] LABS: Arterial Base Excess iSTAT 2 MMOL/L (-2.5-2.5); Arterial Bicarbonate iSTAT 26.9 MMOL/L (20-26); Arterial O2 Saturation iSTAT 94 % (95-100); Arterial PCO2 iSTAT 42 MM HG (35-48); Arterial PO2 iSTAT 72 MM HG (80-95); Arterial Total CO2 iSTAT 28 MMO/L (23-27)
[2022-05-10 05:24] LABS: Basophils % 0.2 % (0.0-0.8); Hematocrit 29.5 VOL% (35.7-47.0); Hemoglobin 9.1 GM/DL (12.0-16.0); Immature Granulocytes % 0.8 %; Immature Granulocytes Absolute 0.05 #; Lymphocytes # 0.4 10*3/uL (1.4-4.0); Lymphocytes % 6.7 % (21.3-54.2); Mean Corpuscular HGB Conc 30.8 GM/DL (32-36); Mean Platelet Volume 12.4 FL (9.6-12.0); Monocytes # 0.1 10*3/uL (0.11-0.8); Monocytes % 0.9 % (1.7-12.7); NRBC # 0.02 10*3/uL; Neutrophils % 91.4 % (38.7-73.9); Platelet Count 134 T/CUMM (130-400); Red Blood Count 3.04 MC/CUMM (3.8-5.5); Red Cell Distribution Width 14.8 % (9.3-17.3); White Blood Count 6.4 T/CUMM (4-12)
[2022-05-10 05:58] LABS: Band Neutrophils 1 % (0-10); Lymphocytes 6 % (20-55); Total Cells Counted 100
[2022-05-10 05:59] LABS: Platelet Estimate Adequate
[2022-05-10 06:01] LABS: Albumin 2.8 G/DL (3.4-5.0); Bilirubin,Total 0.5 MG/DL (0.20-1.00); Osmolality,Calculated 299.3 MOS/KG (273-304); Phosphorous 4.4 MG/DL (2.5-4.9); Potassium 3.2 MMOL/L (3.5-5.1)
[2022-05-10] MEDS: POTASSIUM BICARB EFFERVESCENT 20 MEQ TAB.EFF PER TUBE PRN ×4 (06:40→17:33)
[2022-05-10] MEDS: PANTOPRAZOLE 40 MG TABLET PO SCH (08:42)
[2022-05-10] MEDS: DOCUSATE SODIUM 100 MG CAPSULE PO SCH ×2 (08:42→22:38)
[2022-05-10] MEDS: buPROPion XL 150 MG TABLET PO SCH (08:42)
[2022-05-10] MEDS: ASCORBIC ACID 500 MG TABLET PO SCH ×2 (08:42→22:37)
[2022-05-10] MEDS: POLYETHYLENE GLYCOL POWDER 17 GM PACK PO SCH ×2 (08:43→08:56)
[2022-05-10] MEDS: ATORVASTATIN 40 MG TABLET PO SCH (08:43)
[2022-05-10] MEDS: HEPARIN 5,000 UNIT/1 ML VIAL SUBCUT SCH ×2 (08:43→22:41)
[2022-05-10] MEDS: SILDENAFIL 20 MG TABLET PO SCH (08:43)
[2022-05-10] MEDS: ASPIRIN EC 81 MG TABLET PO SCH (08:43)
[2022-05-10] MEDS: BUDESONIDE/FORMOTEROL 80-4.5 INHALER 6.9 GM INH SCH ×2 (08:56→22:41)
[2022-05-11] MEDS: ALBUTEROL 2.5 MG/3 ML NEB RESP TX SCH ×4 (00:20→19:25)
[2022-05-11] MEDS: methylPREDNISolone SOD SUC 40 MG/1 ML VIAL IV SCH ×3 (01:21→16:14)
[2022-05-11 02:18] LABS: ABG Base Excess 2.8 MMOL/L (-2.5-2.5); ABG HCO3 26.9 MMOL/L (20-26); ABG Oxygen Saturation 96.4 % (95-100); ABG PCO2 40.8 MM HG (35-48); ABG PH 7.433 (7.35-7.45); ABG PO2 86.1 MM HG (80-95); ABG TCO2 24.7 MMOL/L (23-27)
[2022-05-11 05:18] LABS: Basophils % 0.1 % (0.0-0.8); Hemoglobin 9.8 GM/DL (12.0-16.0); Immature Granulocytes % 0.8 %; Immature Granulocytes Absolute 0.09 #; Lymphocytes # 0.5 10*3/uL (1.4-4.0); Lymphocytes % 4.4 % (21.3-54.2); Mean Corpuscular HGB Conc 30.6 GM/DL (32-36); Mean Platelet Volume 12.5 FL (9.6-12.0); Monocytes # 0.2 10*3/uL (0.11-0.8); Monocytes % 1.8 % (1.7-12.7); Neutrophils % 92.9 % (38.7-73.9); Platelet Count 144 T/CUMM (130-400); Red Cell Distribution Width 15.2 % (9.3-17.3); White Blood Count 10.9 T/CUMM (4-12)
[2022-05-11 05:40] LABS: Calcium 8.8 MG/DL (8.5-10.1); Osmolality,Calculated 294.5 MOS/KG (273-304); Potassium 3.6 MMOL/L (3.5-5.1)
[2022-05-11 05:54] LABS: Hypochromia Slight; Lymphocytes 4 % (20-55); Microcytosis Slight; Platelet Estimate Adequate; Total Cells Counted 100
[2022-05-11] MEDS: DOCUSATE SODIUM 100 MG CAPSULE PO SCH ×2 (09:43→21:05)
[2022-05-11] MEDS: ASPIRIN EC 81 MG TABLET PO SCH (09:43)
[2022-05-11] MEDS: ATORVASTATIN 40 MG TABLET PO SCH (09:43)
[2022-05-11] MEDS: ASCORBIC ACID 500 MG TABLET PO SCH ×2 (09:44→21:05)
[2022-05-11] MEDS: BUDESONIDE/FORMOTEROL 80-4.5 INHALER 6.9 GM INH SCH ×2 (09:44→21:05)
[2022-05-11] MEDS: PANTOPRAZOLE 40 MG TABLET PO SCH (09:44)
[2022-05-11] MEDS: POLYETHYLENE GLYCOL POWDER 17 GM PACK PO SCH (09:44)
[2022-05-11] MEDS: HEPARIN 5,000 UNIT/1 ML VIAL SUBCUT SCH ×2 (09:44→21:05)
[2022-05-11] MEDS: buPROPion XL 150 MG TABLET PO SCH (09:44)
[2022-05-11] MEDS ORDERED: diphenhydrAMINE CAP 25 MG CAPSULE PO PRN (22:40)
[2022-05-12] MEDS: ALBUTEROL 2.5 MG/3 ML NEB RESP TX SCH ×4 (00:40→19:50)
[2022-05-12] MEDS: methylPREDNISolone SOD SUC 40 MG/1 ML VIAL IV SCH ×3 (01:47→16:13)
[2022-05-12 04:26] LABS: Arterial Base Excess iSTAT 3 MMOL/L (-2.5-2.5); Arterial Bicarbonate iSTAT 26.8 MMOL/L (20-26); Arterial O2 Saturation iSTAT 95 % (95-100); Arterial PCO2 iSTAT 37 MM HG (35-48); Arterial PO2 iSTAT 69 MM HG (80-95); Arterial Total CO2 iSTAT 28 MMO/L (23-27); Arterial pH iSTAT 7.471 (7.35-7.45)
[2022-05-12 06:10] LABS: Hematocrit 30.7 VOL% (35.7-47.0); Hemoglobin 9.4 GM/DL (12.0-16.0); Immature Granulocytes Absolute 0.09 #; Lymphocytes # 0.5 10*3/uL (1.4-4.0); Lymphocytes % 5.3 % (21.3-54.2); Mean Corpuscular HGB Conc 30.6 GM/DL (32-36); Mean Corpuscular Volume 96.2 FL (87-102); Mean Platelet Volume 11.8 FL (9.6-12.0); Monocytes # 0.2 10*3/uL (0.11-0.8); Monocytes % 2.7 % (1.7-12.7); Platelet Count 135 T/CUMM (130-400); Red Blood Count 3.19 MC/CUMM (3.8-5.5); Red Cell Distribution Width 15.3 % (9.3-17.3)
[2022-05-12 06:30] LABS: Calcium 8.6 MG/DL (8.5-10.1); Osmolality,Calculated 299.1 MOS/KG (273-304); Potassium 3.7 MMOL/L (3.5-5.1)
[2022-05-12 06:37] LABS: Hypochromia Slight; Lymphocytes 6 % (20-55); Microcytosis Slight; Platelet Estimate Adequate; Total Cells Counted 100
[2022-05-12] MEDS ORDERED: MEPERIDINE 50 MG/1 ML VIAL IM ONE (07:30)
[2022-05-12] MEDS ORDERED: PROMETHAZINE 25 MG/1 ML VIAL IM ONE (07:30)
[2022-05-12] MEDS ORDERED: LIDOCAINE 2% VISCOUS 100 ML BOTTLE SWISH/SPIT ONE (08:00)
[2022-05-12] MEDS ORDERED: LIDOCAINE 1% 20 ML VIAL MISC INJ ONE (08:00)
[2022-05-12] MEDS ORDERED: MIDAZOLAM 2 MG/2 ML VIAL ONE (08:00)
[2022-05-12] MEDS ORDERED: LIDOCAINE 2% 20 ML VIAL RESP TX ONE (08:00)
[2022-05-12] MEDS ORDERED: MIDAZOLAM 10 MG/2 ML VIAL IV ONE (08:00)
[2022-05-12] MEDS ORDERED: FUROSEMIDE 40 MG/4 ML VIAL IV ONE (08:40)
[2022-05-12] MEDS: PANTOPRAZOLE 40 MG TABLET PO SCH (09:31)
[2022-05-12] MEDS: ASCORBIC ACID 500 MG TABLET PO SCH ×2 (09:31→20:12)
[2022-05-12] MEDS: DOCUSATE SODIUM 100 MG CAPSULE PO SCH ×2 (09:31→20:12)
[2022-05-12] MEDS: ASPIRIN EC 81 MG TABLET PO SCH (09:31)
[2022-05-12] MEDS: buPROPion XL 150 MG TABLET PO SCH (09:31)
[2022-05-12] MEDS: ATORVASTATIN 40 MG TABLET PO SCH (09:31)
[2022-05-12] MEDS: POLYETHYLENE GLYCOL POWDER 17 GM PACK PO SCH (09:32)
[2022-05-12] MEDS: HEPARIN 5,000 UNIT/1 ML VIAL SUBCUT SCH ×2 (09:33→20:13)
[2022-05-12] MEDS: BUDESONIDE/FORMOTEROL 80-4.5 INHALER 6.9 GM INH SCH ×2 (09:33→20:14)
[2022-05-12] MEDS: tiZANidine 4 MG TABLET PO PRN (20:12)
[2022-05-13] MEDS: methylPREDNISolone SOD SUC 40 MG/1 ML VIAL IV SCH ×2 (00:28→10:53)
[2022-05-13] MEDS: ALBUTEROL 2.5 MG/3 ML NEB RESP TX SCH ×4 (01:50→19:40)
[2022-05-13 04:13] LABS: Arterial Base Excess iSTAT 6 MMOL/L (-2.5-2.5); Arterial Bicarbonate iSTAT 30.6 MMOL/L (20-26); Arterial O2 Saturation iSTAT 97 % (95-100); Arterial PCO2 iSTAT 41 MM HG (35-48); Arterial PO2 iSTAT 84 MM HG (80-95); Arterial Total CO2 iSTAT 32 MMO/L (23-27); Arterial pH iSTAT 7.478 (7.35-7.45)
[2022-05-13 05:46] LABS: Hematocrit 28.5 VOL% (35.7-47.0); Hemoglobin 8.8 GM/DL (12.0-16.0); Immature Granulocytes % 0.7 %; Immature Granulocytes Absolute 0.05 #; Lymphocytes # 0.3 10*3/uL (1.4-4.0); Lymphocytes % 4.9 % (21.3-54.2); Mean Corpuscular HGB Conc 30.9 GM/DL (32-36); Mean Corpuscular Volume 96.9 FL (87-102); Mean Platelet Volume 12.5 FL (9.6-12.0); Monocytes # 0.2 10*3/uL (0.11-0.8); Monocytes % 3.3 % (1.7-12.7); Neutrophils % 91.1 % (38.7-73.9); Platelet Count 137 T/CUMM (130-400); Red Blood Count 2.94 MC/CUMM (3.8-5.5); Red Cell Distribution Width 14.9 % (9.3-17.3); White Blood Count 6.7 T/CUMM (4-12)
[2022-05-13 06:00] LABS: Calcium 8.2 MG/DL (8.5-10.1); Osmolality,Calculated 301.8 MOS/KG (273-304); Potassium 3.6 MMOL/L (3.5-5.1)
[2022-05-13 06:24] LABS: Hypochromia Slight; Lymphocytes 4 % (20-55); Microcytosis Slight; Platelet Estimate Adequate; Total Cells Counted 100
[2022-05-13] MEDS: PANTOPRAZOLE 40 MG TABLET PO SCH (09:49)
[2022-05-13] MEDS: ASPIRIN EC 81 MG TABLET PO SCH (09:49)
[2022-05-13] MEDS: DOCUSATE SODIUM 100 MG CAPSULE PO SCH ×2 (09:49→21:30)
[2022-05-13] MEDS: ATORVASTATIN 40 MG TABLET PO SCH (09:49)
[2022-05-13] MEDS: HEPARIN 5,000 UNIT/1 ML VIAL SUBCUT SCH ×2 (09:49→21:30)
[2022-05-13] MEDS: ASCORBIC ACID 500 MG TABLET PO SCH ×2 (09:49→21:30)
[2022-05-13] MEDS: POLYETHYLENE GLYCOL POWDER 17 GM PACK PO SCH (09:50)
[2022-05-13] MEDS: BUDESONIDE/FORMOTEROL 80-4.5 INHALER 6.9 GM INH SCH ×2 (09:50→21:30)
[2022-05-13] MEDS: buPROPion XL 150 MG TABLET PO SCH (09:58)
[2022-05-13] MEDS ORDERED: FUROSEMIDE 40 MG/4 ML VIAL IV ONE (12:53)
[2022-05-13] MEDS: predniSONE 20 MG TABLET PO SCH (13:16)
[2022-05-13] MEDS: ALPRAZolam 0.5 MG TABLET PO PRN (14:22)
[2022-05-13] MEDS: tiZANidine 4 MG TABLET PO PRN (23:00)
[2022-05-14 05:20] LABS: Eosinophils % 0.2 % (0.00-10.9); Hematocrit 30.8 VOL% (35.7-47.0); Hemoglobin 9.4 GM/DL (12.0-16.0); Immature Granulocytes % 0.5 %; Immature Granulocytes Absolute 0.03 #; Lymphocytes # 0.9 10*3/uL (1.4-4.0); Lymphocytes % 14.7 % (21.3-54.2); Mean Corpuscular HGB Conc 30.5 GM/DL (32-36); Mean Corpuscular Volume 96.9 FL (87-102); Mean Platelet Volume 12.2 FL (9.6-12.0); Monocytes # 0.6 10*3/uL (0.11-0.8); Monocytes % 9.1 % (1.7-12.7); Neutrophils % 75.5 % (38.7-73.9); Platelet Count 148 T/CUMM (130-400); Red Blood Count 3.18 MC/CUMM (3.8-5.5); Red Cell Distribution Width 14.7 % (9.3-17.3); White Blood Count 6.1 T/CUMM (4-12)
[2022-05-14] MEDS: ALBUTEROL 2.5 MG/3 ML NEB RESP TX SCH (06:12)
[2022-05-14 07:42] VITALS: BP 144/83
[2022-05-14] MEDS: DOCUSATE SODIUM 100 MG CAPSULE PO SCH (10:17)
[2022-05-14] MEDS: PANTOPRAZOLE 40 MG TABLET PO SCH (10:17)
[2022-05-14] MEDS: ASCORBIC ACID 500 MG TABLET PO SCH (10:17)
[2022-05-14] MEDS: predniSONE 20 MG TABLET PO SCH (10:18)
[2022-05-14] MEDS: HEPARIN 5,000 UNIT/1 ML VIAL SUBCUT SCH (10:18)
[2022-05-14] MEDS: ASPIRIN EC 81 MG TABLET PO SCH (10:18)
[2022-05-14] MEDS: BUDESONIDE/FORMOTEROL 80-4.5 INHALER 6.9 GM INH SCH (10:18)
[2022-05-14] MEDS: ATORVASTATIN 40 MG TABLET PO SCH (10:18)
[2022-05-14] MEDS: POLYETHYLENE GLYCOL POWDER 17 GM PACK PO SCH (10:18)
[2022-05-14] MEDS: buPROPion XL 150 MG TABLET PO SCH (10:19)
[2022-05-17 01:01] LABS: M. Tuberculosis PCR Result Negative (Negative); M. Tuberculosis PCR Source BRONCH WASH
== END 2022-05-14 12:37 | disposition home or self-care (01) | DRG 291 ==
LOC: N.ED 18:20 → SUATTDRO 22:12 → N.EDINP 22:12 → N.TELEN 23:30 → N.CC 05-08 17:01 → N.TELEN 05-10 18:41 → N.ICU 05-11 04:20 → N.TELEN 05-11 04:26
PROVIDERS: ADMIT Internal Medicine; ATTEND Internal Medicine Geriatric Medicine